=== PATIENT | female | born 1995 | race Hispanic/Latino ===

== ENCOUNTER 2019-10-04 10:34 | Outpatient (CLI) | payer BC ==
--- NOTE | 2019-10-04 11:51 | ULT ---
ULTRASOUND OBSTETRICAL COMPLETE: DATE: 10/04/2019 HISTORY: ICD-10: "Z 34.00, first " in 23-year-old female. Evaluate anatomy. FINDINGS: number: pacheco lie: Breech Maternal cervix: 3 cm. Closed. Placenta: Anterior. No placenta previa. 3.5 x 4.5 cm myometrial mass indenting posterior aspect of gestational sac is a Redwood Shultz contrac tion rather than a uterine fibroid. Amniotic fluid volume: Subjectively normal. DANE not measured. heart rate: 139 bpm The following anatomy is visualized, with no evidence of anomalies: Head, cerebellum, lateral ventricles, four-chamber heart, stomach, kidneys, cord insertion, bladder, cervical spine, thoracic spine, lumbar spine, sacrum, nose and lips, upper extremities, lower extremities, and three-vessel cord. biometry: Biparietal diameter (BPD): 4.3 cm 19 w 1 d Head circumference (HC): 17.0 cm 19 w 5 d Abdominal circumference (AC): 13.6 cm 19 w 1 d Femur length (FL): 3.1 cm 19 w 4 d Average ultrasound age (AUA): 19 w 3 d Estimated date of delivery (ELLE): 02/25/2020 Estimated weight (EFW): 284 g IMPRESSION: 1) Live 2nd trimester intrauterine gestation. 2) Estimated gestational age of 19 weeks, 3 days 3) breech lie. 4) no anatomic abnormality identified.
== END 2019-10-04 10:35 | disposition home or self-care (01) ==
LOC: BICULT 10:34
PROVIDERS: ATTEND Family Medicine
DX: Z34.02 Encounter for supervision of normal first pregnancy, second trimester (principal); Z3A.19 19 weeks gestation of pregnancy; O32.1XX0 Maternal care for breech presentation, not applicable or unspecified
CPT/HCPCS: 76805

== ENCOUNTER → 2020-02-26 | Outpatient (CLI) | payer BC, OTHER ==
[2020-02-26 18:47] LABS: SARS-CoV-2 MS2 Positive; SARS-CoV-2 N Gene Negative; SARS-CoV-2 S Gene Negative; SARS-CoV-2 orf1ab Negative
== END ==
LOC: ERS 11:31 → LAB 14:29
PROVIDERS: ATTEND Family Medicine
DX: Z11.59 Encounter for screening for other viral diseases (principal)
CPT/HCPCS: 87635; U0003

== ENCOUNTER 2024-03-08 15:54 | Outpatient (CLI) | payer BC | END 2024-03-08 15:55 | disposition home or self-care (01) | LOC: BICRAD 15:54 | PROVIDERS: ATTEND Family Medicine | DX: M79.674 Pain in right toe(s) (principal) ==